=== PATIENT | female | born 1990 | race Caucasian/White ===

== ENCOUNTER 2016-12-31 05:48 | Day surgery (SDC) | payer OTHER ==
[~2016-12-31] VITALS: Ht 167.6 cm; Wt 59.0 kg
--- NOTE | ~2016-12-31 | OR ---
PATIENT'S NAME: JEROME SAINZ [facility] AGE: 26 Y [address] ROOM: [address] [address] LOCATION: GOBS ADMIT DATE: 12/31/2016 OR/Procedure Report DISCHARGE DATE: 12/31/2016 FAMILY PHYSICIAN: Anne-Marie Marroquin MD ATTENDING PHYSICIAN: Rudy Anderson SURGEON: Rudy Anderson MD KITCHENHAND: Florentino Gibson M.D. DATE OF PROCEDURE: 12/31/2016 PREOPERATIVE DIAGNOSIS: Incompetent cervix, 14 weeks gestation. POSTOPERATIVE DIAGNOSIS: Incompetent cervix, 14 weeks gestation. PROCEDURE: Placement of a cervical cerclage (Jacobs x2). ANESTHESIA: General. ESTIMATED BLOOD LOSS: 10 mL. CLINICAL INDICATION: Jerome Sainz is a 26-year-old, , white female, 3, para 0 at 14 weeks gestational age. She has a history of an incompetent cervix needing a cervical cerclage. Blood type is O positive. She understood the indications, procedures, risks, and alternatives. FINDINGS: Normal-appearing cervix. Normal vagina. DESCRIPTION OF PROCEDURE: The patient was taken to the operating room and given general anesthesia with good results, placed in a lithotomy position, prepped and draped in the usual fashion. Posterior weighted and anterior vaginal retractor were inserted into the vagina. The 0 Prolene suture was placed about the cervix in a pursestring fashion. A second pursestring stitch of 0 Prolene suture was placed about the cervix. Suture bolsters employed, readily secured. Good hemostasis was obtained. Vaginal instruments were retrieved. The patient tolerated the procedure well and was taken to the recovery room in good condition. MD MARGARET BOO/bril /[id number] d: 12/31/1645 t: 01/04/17 0704, OPERATIVE SUMMARY
[~2016-12-31 05:48] MED LIST: FEOSOL325 MG PO; FOLIC ACID1 MG PO; LEVOTHROID (SY50 MCG PO; NORCO 5-325 MG1 TAB PO; PRENATAL 1+1)(P1 TAB PO; PROGESTERONE200 MG PO
[2016-12-31 06:49] LABS: BASOPHIL % 0.2 %; EOSINOPHIL % 0.6 %; HEMATOCRIT 37.5 % (33.0-46.0); IMMATURE GRANULOCYTE % 0.2 %; LYMPHOCYTE # 1.1 K/uL (0.8-4.0); LYMPHOCYTE % 21.6 %; MCH 30.3 pg (27.0-34.0); MCHC 34.7 gm/dL (32.0-36.5); MCV 87.4 fl (83.0-98.0); MONOCYTE # 0.5 K/uL (0.0-1.0); MONOCYTE % 8.8 %; NEUTROPHIL # (ANC) 3.6 K/uL (1.8-7.8); NEUTROPHIL % 68.6 %; NRBC % 0 /100WBC (0-0.00); PLATELET COUNT 181 K/uL (150-450); RBC 4.29 M/uL (3.50-5.00); WBC 5.2 K/uL (4.0-11.0)
== END 2016-12-31 12:20 | disposition disaster alternative care site (69) ==
LOC: GOBS 05:48 → GOBM 05:48 → GPOC 06:00 → GOBM 12:20
PROVIDERS: Obstetrics & Gynecology
PROC: 0UVC7ZZ Restriction of Cervix, Via Natural or Artificial Opening (ICD-10-PCS; principal; 2016-12-31)
DX: O34.32 Maternal care for cervical incompetence, second trimester (principal); Z3A.14 14 weeks gestation of pregnancy; O99.282 Endocrine, nutritional and metabolic diseases complicating pregnancy, second trimester; E03.9 Hypothyroidism, unspecified; O26.892 Other specified pregnancy related conditions, second trimester; E28.2 Polycystic ovarian syndrome
CPT/HCPCS: G0463; J7120

== ENCOUNTER 2017-03-24 13:52 | Outpatient (CLI) | payer OTHER ==
[~2017-03-24] VITALS: Ht 167.6 cm; Wt 63.0 kg
--- NOTE | ~2017-03-24 | DS ---
PATIENT'S NAME: JEROME [facility]CI[facility]A [facility] AGE: 26 Y [address] ROOM: [facility] [place] [place] [address] LOCATION: [facility] ADMIT DATE: 03/24/2017 Discharge Summary DISCHARGE DATE: 03/24/2017 FAMILY PHYSICIAN: Anne-Marie Marroquin MD ATTENDING PHYSICIAN: Heide Metz HISTORY OF PRESENT ILLNESS: This is a 26-year-old patient who presents at 26 weeks and 1 day with contraction. She has a history of incompetent cervix with a previous twin with a 22-week loss. She is status post cerclage this and sees Dr. Anderson. She complains of contractions today. They did not improve with oral hydration. When she got here, she was actually feeling better. heart tones are reassuring. [place] just shows irritability. A transvaginal ultrasound was performed reveals a total cervical length of 3.7 cm with no funneling, about 1.98 cm below the stitch. I digitally checked her, it is long, thick, and closed. There is no pressure on the cerclage. The vertex is high. IMPRESSION: 1. Intrauterine at 26 weeks. 2. Contractions. 3. History of incompetent cervix. 4. Status post cerclage. PLAN: We will send her home. She will get some extra rest today and tomorrow. Otherwise, she will follow up in the office as scheduled this week with Dr. Anderson. HEIDE METZ MD KHP/modl /[id number] d: 03/24/171823 t: 04/09/17918, DISCHARGE SUMMARY
[2017-03-24 14:26] LABS: BILIRUBIN URINE NEGATIVE (NEGATIVE); BLOOD URINE NEGATIVE /UL (NEGATIVE); COLOR URINE COLORLESS (YELLOW); GLUCOSE URINE NEGATIVE (NEGATIVE); KETONE URINE NEGATIVE (NEGATIVE); LEUKOCYTES URINE NEGATIVE /UL (NEGATIVE); NITRITE URINE NEGATIVE (NEGATIVE); PROTEIN URINE NEGATIVE (NEGATIVE); TURBIDITY URINE CLEAR (CLEAR); UROBILINOGEN URINE NORMAL (NORMAL)
== END 2017-03-24 16:20 | disposition disaster alternative care site (69) ==
LOC: GOBS 13:52 → GOBM 13:52 → GOBS 13:52 → EDSTATUS 14:28 → GOBS 16:20 → GOBM 16:20
PROVIDERS: Obstetrics & Gynecology
DX: O47.03 False labor before 37 completed weeks of gestation, third trimester (principal); Z3A.26 26 weeks gestation of pregnancy
CPT/HCPCS: G0463

== ENCOUNTER 2017-05-27 06:05 | Day surgery (SDC) | payer OTHER ==
[~2017-05-27] VITALS: Ht 165.1 cm; Wt 66.7 kg
--- NOTE | ~2017-05-27 | OR ---
PATIENT'S NAME: JEROME SAINZ [facility] AGE: 26 Y [address] ROOM: [place] [address] LOCATION: [facility] ADMIT DATE: 05/27/2017 OR/Procedure Report DISCHARGE DATE: FAMILY PHYSICIAN: PHYSICIAN, NO ATTENDING PHYSICIAN: Rudy Anderson SURGEON: Rudy Anderson MD RESPITE COORDINATOR: None. DATE OF PROCEDURE: 05/27/2017 PREOPERATIVE DIAGNOSIS: Incompetent cervix with cervical cerclage in place. POSTOPERATIVE DIAGNOSIS: Incompetent cervix with cervical cerclage no longer placed. ANESTHESIA: None. ESTIMATED BLOOD LOSS: None. PROCEDURE: Removal of cervical cerclage. ANESTHESIA: None. CLINICAL INDICATIONS: Jerome Sainz is a 26-year-old female with an incompetent cervix. She has had a cervical cerclage placed and needs to have it removed. FINDINGS: Placement of cervical cerclage in situ Jacobs x2. DESCRIPTION OF PROCEDURE: The patient was left in Labor and Delivery room, placed in a lithotomy position. Speculum was inserted in the vagina. The stitches were identified, single ring forceps were used to grasp the suture, they were elevated. Scissors were used to cut the one leg of each stitch, each were removed along with the suture bolsters. The patient tolerated the procedure well, remained in Labor and Delivery room in good condition. MD MARGARET BOO/modl /[id number] d: 05/27/17 1426 t: 06/06/17 0739, OPERATIVE SUMMARY
[2017-05-27 07:13] LABS: BASOPHIL % 0.2 %; EOSINOPHIL % 0.6 %; HEMATOCRIT 34.3 % (33.0-46.0); HEMOGLOBIN 11.9 g/dL (11.0-15.0); IMMATURE GRANULOCYTE # 0.1 K/uL (0.0-0.3); IMMATURE GRANULOCYTE % 0.8 %; LYMPHOCYTE # 1.4 K/uL (0.8-4.0); LYMPHOCYTE % 21.5 %; MCH 31.8 pg (27.0-34.0); MCHC 34.7 gm/dL (32.0-36.5); MCV 91.7 fl (83.0-98.0); MONOCYTE # 0.5 K/uL (0.0-1.0); MONOCYTE % 7.8 %; MPV 11.9 fl (9.4-12.4); NEUTROPHIL # (ANC) 4.6 K/uL (1.8-7.8); NEUTROPHIL % 69.1 %; NRBC % 0 /100WBC (0-0.00); PLATELET COUNT 147 K/uL (150-450); RBC 3.74 M/uL (3.50-5.00); RDW-CV 13.4 % (11.9-14.6); WBC 6.6 K/uL (4.0-11.0)
== END 2017-05-27 12:40 | disposition disaster alternative care site (69) ==
LOC: GOBM 06:05 → GOBS 06:05 → GOBM 11:00
PROVIDERS: Obstetrics & Gynecology
PROC: 0UCC7ZZ Extirpation of Matter from Cervix, Via Natural or Artificial Opening (ICD-10-PCS; principal; 2017-05-27)
DX: O34.33 Maternal care for cervical incompetence, third trimester (principal); E03.9 Hypothyroidism, unspecified; E28.2 Polycystic ovarian syndrome; Z3A.35 35 weeks gestation of pregnancy; Z79.899 Other long term (current) drug therapy
CPT/HCPCS: G0463